=== PATIENT | female | born 1960 | race Caucasian/White ===

== ENCOUNTER 2021-08-18 02:40 | Day surgery (SDC) | payer BC, SELFPAY ==
[2021-08-05 09:03] VITALS: BMI 30.9
--- NOTE | 2021-08-17 10:20 | WPDANESEPPF ---
Anes - Initial Pre Proc Eval Procedure: Operation Date: 08/18/21 07:30 Proposed Procedures p Screening Colonoscopy - Genaro Andrade MD Date/Time: 08/17/21 10:20 Surgeon: Genaro Andrade MD Pre Op Diagnosis: hx of colon polyps, neoplasm screening Patient Data Age: 60 Gender: F Height: 1.63 m Weight: 81.8 kg Allergies Allergy/AdvReac Type Severity Reaction Status Date / Time latex Allergy Severe Anaphylactic Verified 08/18/21 06:13 Shock Home Medications Medication Instructions Recorded Confirmed Type sodium,potassium,mag sulfates 17.5 See Rx Instructions PO .COMPLEX 07/23/21 08/18/21 Rx gram-3.13 gram-1.6 gram oral soln #354 ml aspirin [Aspir-81] 81 mg PO DAILY 08/05/21 08/18/21 History cholecalciferol (vitamin D3) 125 mcg PO DAILY 08/05/21 08/18/21 History [Vitamin D3] fluoxetine 10 mg PO DAILY 08/05/21 08/18/21 History hydrochlorothiazide 12.5 mg PO DAILY 08/05/21 08/18/21 History metoprolol tartrate 12.5 mg PO BID 08/05/21 08/18/21 History nitroglycerin 0.4 mg SUBLINGUAL TID PRN 08/05/21 08/18/21 History vit C,O-Ku-jwzjs-lutein-zeaxan 1 tablet PO DAILY 08/05/21 08/18/21 History [PreserVision AREDS-2] Patient hx anesthesia problems: none Family hx anesthesia problems: none Results Review: All pre-operative results and documents have been reviewed as part of the pre-operative evaluation. [facility] Past Medical History Medical History (Updated 08/17/21 @ 10:21 by Jovani Sanchez DO) Anxiety Asthma Depression Hypertension PONV (postoperative nausea and vomiting) Surgical History Surgical History (Updated 08/17/21 @ 10:21 by Jovani Sanchez DO) History of History of cholecystectomy Social History Social History Smoking status: Never smoker Living arrangements: with family Spiritual care concerns: No Anes - Eval Final PreProcedure Day of Procedure 08/17/21 10:20 Patient weight: obese Heart: regular rate and rhythm Lungs: clear to auscultation and normal air movement Airway: Mallampati scale class II Neurological: alert and oriented Last oral intake: >/= 8 hours ASA classification: III Emergent: no Anesthetic plan: proceed Anesthesia type and monitoring: general GIVS and standard monitoring Results Review: All pre-operative results and documents have been reviewed as part of the pre-operative evaluation. Informed Consent: The patient's anesthetic plan and its attendant risks and benefits were discussed with the patient/family/POA. Questions were solicited and answers provided to the satisfaction of the patient/family/POA.
[2021-08-18 06:14] VITALS: BP 148/76; PULSE 62; RESP 16; TEMP 37.1; O2SAT 97
[2021-08-18] MEDS: LACTATED RINGERS 1,000 ML 150 ML IV CONT (06:25)
--- NOTE | 2021-08-18 07:28 | PM.HPGS ---
History of Present Illness History of Present Illness Consent: Risks, benefits, and alternatives have been discussed and questions answered. Patient agrees to proceed with procedure. Chief complaint: hx of colon polyps, neoplasm screening Narrative: Inna Patel is a 60 year old female with history of polyps, last colonoscopy 5 years ago. Review of Systems Constitutional: Constitutional: Denies headache(s) and Denies weakness Eyes: Eyes: Denies blurry vision ENT: Reports Normal hearing present, Denies headache(s) and Denies neck pain Cardiovascular: Cardiovascular: Denies chest pain and Denies dyspnea Respiratory: Respiratory: Denies dyspnea Gastrointestinal: Gastrointestinal: Reports no additional gastrointestinal complaints Genitourinary: Genitourinary: Denies dysuria Musculoskeletal: Musculoskeletal: Denies neck pain Integumentary/Breasts: Skin/Breast: Denies dry skin Neurologic: Reports Normal hearing present, Denies headache(s) and Denies weakness Psychiatric: Psychiatric: Denies anxiety Endocrine: Endocrine: Denies change in body appearance Hematologic/Lymphatic: Hematologic/Lymphatic: Denies easy bleeding Allergic/Immunologic: Allergic/Immunologic: Denies urticaria PMFSH Past Medical History Medical History (Updated 08/18/21 @ 07:28 by Genaro Andrade MD) Anxiety Asthma Colon polyp Depression Hypertension PONV (postoperative nausea and vomiting) Surgical History Surgical History (Updated 08/17/21 @ 10:21 by Jovani Sanchez DO) History of History of cholecystectomy Social History Social History Smoking status: Never smoker Living arrangements: with family Spiritual care concerns: No Meds Home Medications and Allergies Home Medications Medication Instructions Recorded Confirmed Type sodium,potassium,mag sulfates 17.5 See Rx Instructions PO .COMPLEX 07/23/21 08/18/21 Rx gram-3.13 gram-1.6 gram oral soln #354 ml aspirin [Aspir-81] 81 mg PO DAILY 08/05/21 08/18/21 History cholecalciferol (vitamin D3) 125 mcg PO DAILY 08/05/21 08/18/21 History [Vitamin D3] fluoxetine 10 mg PO DAILY 08/05/21 08/18/21 History hydrochlorothiazide 12.5 mg PO DAILY 08/05/21 08/18/21 History metoprolol tartrate 12.5 mg PO BID 08/05/21 08/18/21 History nitroglycerin 0.4 mg SUBLINGUAL TID PRN 08/05/21 08/18/21 History vit C,I-Ux-eczbq-lutein-zeaxan 1 tablet PO DAILY 08/05/21 08/18/21 History [PreserVision AREDS-2] Allergies Allergy/AdvReac Type Severity Reaction Status Date / Time latex Allergy Severe Anaphylactic Verified 08/18/21 06:13 Shock Vital Signs Vital Signs - 24 hr 08/18/21 06:14 Temperature 98.8 F Pulse Rate 62 Respiratory Rate 16 Blood Pressure 148/76 H Pulse Oximetry 97 Exam Const: General: comfortable and no acute distress HENMT: General nose exam: Normal nares present Eyes: General: appearance normal, both eyes and all related structures Neck: Neck: no JVD Resp: Auscultation: clear to auscultation bilaterally Cardio: Rate: regular rate Rhythm: regular rhythm GI: Inspection: non-distended GI Palp: Yes Soft to palpation Skin: General skin exam: normal color Neuro: General: gait normal Speech: normal speech Extrem: General: normal to inspection Psych: Mental Status: mental status grossly normal Assessment and Plan Assessment and plan (1) Colon polyp: Code(s): K63.5 - Polyp of colon Status: Acute Assessment and Plan: colonoscopy
[2021-08-18 07:56] VITALS: BP 98/54; PULSE 60; RESP 18; O2SAT 95
[2021-08-18 08:06] VITALS: BP 105/56; PULSE 60; RESP 19; O2SAT 95
[2021-08-18 08:16] VITALS: BP 114/75; PULSE 60; RESP 20; O2SAT 94
== END 2021-08-18 08:28 | disposition home or self-care (01) ==
PROVIDERS: PCP Family Medicine; Visit Provider Internal Medicine Gastroenterology
PROC: 0DJD8ZZ Inspection of Lower Intestinal Tract, Via Natural or Artificial Opening Endoscopic (ICD-10-PCS; CPT 45378; principal; 2021-08-18 07:30)
DX: Z12.11 Encounter for screening for malignant neoplasm of colon (principal); K63.5 Polyp of colon; K64.8 Other hemorrhoids; I10 Essential (primary) hypertension; J45.909 Unspecified asthma, uncomplicated; F41.8 Other specified anxiety disorders; E66.9 Obesity, unspecified; Z68.33 Body mass index [BMI] 33.0-33.9, adult
CPT/HCPCS: 45385; 88305; J2704; J7120